=== PATIENT | female | born 1950 | race Caucasian/White ===

== ENCOUNTER → 2017-05-24 | Outpatient (CLI) | payer MEDICARE, BC ==
[2016-04-01 13:40] VITALS: BP 160/72
[~2017-05-24] MED LIST: ALPR0.5T PO; AMIO200T2 PO; ASPI325T11 PO; BUDE10.2 IH; BUPR100T6 PO; CARV3.12 PO; CARV3.122 PO; CEPH500C PO; FURO20TA3 PO; HYDR-2678 PO; LINA290C PO; OMEP20CA5 PO; OXYC-327 PO; PREG75CA PO; SULF-143 PO; TIOT18CA IH; VENTOLIN HFA18 GM IH
--- NOTE | 2017-05-24 10:15 | RAD ---
DATE: 05/24/2017 EXAM: DIGITAL SCREEN BILAT W/CAD HISTORY: Routine screening COMPARISON: 08/08/2012 This study was interpreted with the benefit of Computerized Aided Detection (CAD). FINDINGS: Breast Density: FATTY The Breast Parenchyma is primarily fatty replaced. Breast parenchyma level density A.. There are no dominant suspicious masses, suspicious microcalcifications or evidence of architectural distortion. Benign-appearing scattered calcifications bilateral breasts. IMPRESSION: Benign findings BI-RADS CATEGORY: 2 BENIGN FINDING RECOMMENDED FOLLOW-UP: 12M 12 MONTH FOLLOW-UP PQRS compliance statement: Patient information was entered into a reminder system with a target due date 05/24/2018 for the next mammogram. Mammography is a sensitive method for finding small breast cancers, but it does not detect them all and is not a substitute for careful clinical examination. A negative mammogram does not negate a clinically suspicious finding and should not result in delay in biopsying a clinically suspicious abnormality. "Our facility is accredited by the [employer] Mammography [employer]."
== END | disposition home or self-care (01) ==
LOC: MAMMO 08:38
PROVIDERS: ATTEND Obstetrics & Gynecology
DX: Z12.31 Encounter for screening mammogram for malignant neoplasm of breast (principal)
CPT/HCPCS: G0202; 77067

== ENCOUNTER → 2020-06-17 | Outpatient (CLI) | payer MEDICARE, BC ==
[2016-04-01 13:40] VITALS: BP 160/72
[~2020-06-17] MED LIST changes: -AMIO200T2 PO; +AMIO200T6 PO; +CARV3.1210 PO; -CARV3.122 PO; -LINA290C PO; +LINZESS290 MCG PO; -OXYC-327 PO; +OXYC1TAB19 PO; +PREG-9 PO; -PREG75CA PO
--- NOTE | 2020-06-18 09:23 | RAD ---
DATE: 06/17/2020 EXAM: DIGITAL SCREEN BILAT W/CAD HISTORY: Screening COMPARISON: 08/08/2012, 05/24/2017 This study was interpreted with the benefit of Computerized Aided Detection (CAD). Breast Density: FATTY The breast parenchyma is primarily fatty replaced. Breast parenchyma level density A. FINDINGS: There is a new ovoid 4 mm mass in the right breast at approximately 12:00, 7 cm posterior to the nipple. No other mass, suspicious desiccation, or architectural distortion in either breast. IMPRESSION: 4 mm mass in the upper right breast. Recommend spot compression CC and MLO views, and ultrasound to further evaluate. BI-RADS CATEGORY: 0 INCOMPLETE: NEEDS ADDITIONAL IMAGING EVALUATION AND/OR PRIOR MAMMOGRAMS FOR COMPARISON. RECOMMENDED FOLLOW-UP: ADD ADDITIONAL IMAGING PQRS compliance statement: Patient information was entered into a reminder system with a target due date for the next mammogram. Mammography is a sensitive method for finding small breast cancers, but it does not detect them all and is not a substitute for careful clinical examination. A negative mammogram does not negate a clinically suspicious finding and should not result in delay in biopsying a clinically suspicious abnormality. "Our facility is accredited by the [employer] Mammography [employer]."
== END ==
LOC: MAMMO 10:27
PROVIDERS: ATTEND Family Medicine
DX: Z12.31 Encounter for screening mammogram for malignant neoplasm of breast (principal); N64.89 Other specified disorders of breast
CPT/HCPCS: 77067

== ENCOUNTER → 2020-06-29 | Outpatient (CLI) | payer MEDICARE, BC ==
[2016-04-01 13:40] VITALS: BP 160/72
--- NOTE | 2020-06-29 09:10 | RAD ---
EXAM: Right breast diagnostic mammogram; right breast sonogram. HISTORY: 70-year-old female presents for evaluation of nodularity within the right breast demonstrated on a screening mammogram dated 06/17/2020. TECHNIQUE: Full-field and spot compression views of the right breast are obtained. Sonographic imaging of the right breast targeted to the site of nodularity was performed. COMPARISON: Mammograms dated 06/17/2020 and 05/24/2017. BREAST PARENCHYMAL DENSITY: Level A - Mostly fat. FINDINGS: There is a persistent small circumscribed nodule with focus of internal lucency within the superficial 12:30 position of the right breast at anterior to mid depth. There is no associated architectural distortion or calcification. Sonographic imaging of the right breast demonstrates an oval hyperechoic lesion within the subcutaneous soft tissues at the 12:30 position 7 cm from the nipple measuring 1.1 cm. This contains a 3.3 mm eccentric focus of hypoechogenicity. This demonstrates no internal blood flow. This lesion corresponds with the mammographic finding of concern. There is a second smaller similar-appearing lesion within the superficial soft tissues at the 12:00 position 8 cm from the nipple measuring 5.0 mm within internal focus of hypoechogenicity measuring 2.7 mm. This is likely mammographically occult. IMPRESSION: 1. 1.1 cm and adjacent 5 mm lesions within the subcutaneous soft tissues of the left breast at the 12:30 and 12:00 positions 7 cm and 8 cm from the nipple, the larger of which corresponds with the mammographic finding of concern. The location and sonographic appearance of these lesions favors small areas of benign fat necrosis. There is no persistent suspicious sonographic or mammographic finding. 2. BI-RADS Category 3: Probably benign finding(s). Precautionary short-term follow-up with a right breast mammogram and sonogram in 6 months is recommended to confirm evolution or stability of suspected fat necrosis described above. If your mammogram demonstrates that you have dense breast tissue, which could hide abnormalities, and if you have other risk factors for breast cancer that have been identified, you might benefit from supplemental screening tests that may be suggested by your ordering physician. Dense breast tissue, in and of itself, is a relatively common condition. This information is not provided to cause undue concern, but rather to raise your awareness and to promote discussion with your physician regarding the presence of other risk factors, in addition to dense breast tissue. A report of your mammography results will be sent to you and your physician. You should contact your physician if you have any questions or concerns regarding this report. Mammography is a sensitive method for finding small breast cancers, but it does not detect them all and is not a substitute for careful clinical examination. A negative mammogram does not negate a clinically suspicious finding and should not result in delay in biopsying a clinically suspicious abnormality. PQRS compliance statement - Patient information was entered into a reminder system with a target due date for the next mammogram. "Our facility is accredited by the [employer] Mammography [employer]." Electronically signed by: Aurelia Jacobs MD (06/29/2020 9:07 AM) [id number]
== END ==
LOC: MAMMO 07:57
PROVIDERS: ATTEND Family Medicine
DX: R92.8 Other abnormal and inconclusive findings on diagnostic imaging of breast (principal); N64.89 Other specified disorders of breast
CPT/HCPCS: 76641; 77065